=== PATIENT | female | born 1985 | race Caucasian/White ===

== ENCOUNTER 2016-05-05 14:33 | Outpatient (CLI) | payer OTHER ==
--- NOTE | 2016-05-05 15:27 | DIAGNOSTIC IMAGING REPORT ---
PROCEDURE: US 1ST TRIMESTER INDICATION: AMENORRHEA,7WKS PREG TECHNIQUE: Cash scale, color, and spectral Doppler transabdominal sonographic images of the first trimester gravid uterus were obtained. COMPARISON: None. FINDINGS: TRANSABDOMINAL SCANS: The gravid uterus is anteverted in position and contains a fundal gestational sac with a moderate decidual response. No perigestational hemorrhage. The cervix is closed. A pole with an average crown-rump length of 2.9 cm is present. There is detectable cardiac activity in the fetus in a rate of 156 beats per minute. A yolk sac was visible. Maternal ovaries appear normal with a corpus luteum cyst visualized on the left ovary. No free pelvic fluid. IMPRESSION: 1. Single living intrauterine with gestational age of 9 weeks 5 days and estimated due date of 12/03/2016 2. Closed cervix and no perigestational hemorrhage.
== END 2016-05-05 23:00 ==
LOC: US SRH 14:33
DX: Z34.91 Encounter for supervision of normal pregnancy, unspecified, first trimester (principal); Z3A.09 9 weeks gestation of pregnancy

== ENCOUNTER 2016-05-25 13:02 | Outpatient (CLI) | payer OTHER | END 2016-05-25 23:00 | LOC: LAB SRH 13:02 | DX: N91.2 Amenorrhea, unspecified (principal) | CPT/HCPCS: 90004; 90074; 90078; 90261; 90364; 90469; 90599; 90600; 90605; 90606; 90851; 92863; 98480; 99777 ==

== ENCOUNTER 2016-07-14 11:26 | Outpatient (CLI) | payer OTHER ==
--- NOTE | 2016-07-14 13:31 | DIAGNOSTIC IMAGING REPORT ---
PROCEDURE: US OB DETAILED ANATOMIC INDICATION: ANATOMY TECHNIQUE: Cash scale, color, and spectral Doppler images of the second trimester gravid uterus were obtained. COMPARISON: OB ultrasound 05/05/2016. FINDINGS: Single intrauterine with variable presentation, right posterior placenta without previa. Heart rate 153 bpm. Amniotic fluid is unremarkable. Normal closed cervix measures 3.7 cm. The anatomic survey, including the intracranial anatomy, facial structures, nuchal region, spine, ykvm-[id number] view, outflow tracts, chest and diaphragm, stomach and abdomen, three-vessel cord and cord insertion, bladder and pelvis, kidneys and extremities, is within normal limits. BPD 4.6 cm, 19 weeks 5 days; head circumference 16.7 cm, 19 weeks 2 days; abdominal circumference 14.5 cm, 46-cayb-5-day; femur length 3.4 cm, 20 weeks 4 days. Composite age 19 weeks 6 days. RAYRAY 12/02/2016. IMPRESSION: 1. Single live intrauterine , 19-week 6 days 2. RAYRAY 12/02/2016, normal interval growth 3. anatomic survey within normal limits.
--- NOTE | 2016-07-14 13:31 | DIAGNOSTIC IMAGING REPORT ---
PROCEDURE: US OB DETAILED ANATOMIC INDICATION: ANATOMY TECHNIQUE: Cash scale, color, and spectral Doppler images of the second trimester gravid uterus were obtained. COMPARISON: OB ultrasound 05/05/2016. FINDINGS: Single intrauterine with variable presentation, right posterior placenta without previa. Heart rate 153 bpm. Amniotic fluid is unremarkable. Normal closed cervix measures 3.7 cm. The anatomic survey, including the intracranial anatomy, facial structures, nuchal region, spine, hpku-meaqmrl-[id number] view, outflow tracts, chest and diaphragm, stomach and abdomen, three-vessel cord and cord insertion, bladder and pelvis, kidneys and extremities, is within normal limits. BPD 4.6 cm, 19 weeks 5 days; head circumference 16.7 cm, 19 weeks 2 days; abdominal circumference 14.5 cm, 69-sbrv-0-day; femur length 3.4 cm, 20 weeks 4 days. Composite age 19 weeks 6 days. RAYRAY 12/02/2016. IMPRESSION: 1. Single live intrauterine , 19-week 6 days 2. RAYRAY 12/02/2016, normal interval growth 3. anatomic survey within normal limits.
== END 2016-07-14 23:00 ==
LOC: US SRH 11:26
DX: Z34.92 Encounter for supervision of normal pregnancy, unspecified, second trimester (principal); Z3A.19 19 weeks gestation of pregnancy

== ENCOUNTER 2016-09-07 13:32 | Outpatient (CLI) | payer OTHER | END 2016-09-07 23:00 | disposition home or self-care (01) | LOC: LAB SRH 13:32 | DX: Z34.02 Encounter for supervision of normal first pregnancy, second trimester (principal) | CPT/HCPCS: 90039; 90074; 91004; 91162; 91163 ==